=== PATIENT | female | born 2000 | race Caucasian/White ===

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

== ENCOUNTER 2021-05-21 16:30 | Day surgery (SDC) | payer MEDICAID, SELFPAY ==
[2021-05-21] VITALS (7 sets, daily range): BP systolic 92–114; BP diastolic 42–66; PULSE 82–108; RESP 16–84; TEMP 36.2–37.1; O2SAT 82–100; BMI 25.6
--- NOTE | ~2021-05-21 | US_ITS ---
EXAMINATION: US PELVIS CLINICAL INFORMATION: Post elective termination of 13 days ago. Vaginal bleeding. COMPARISON: None TECHNIQUE: Ultrasound of the pelvis is performed using transabdominal transducer along with Doppler. Patient declined transvaginal exam. FINDINGS: The uterus is anteverted and measures 8.4 x 4.2 x 4.1 cm in dimension. The endometrial thickness measures between 0.9 and 1.1 cm and is slightly heterogeneous appearing. There is motion seen in the endometrium suggestive of active bleeding. The ovaries are normal-appearing. The right ovary measures 2.2 x 2.3 x 1.3 cm and the left ovary measures 3 x 1.3 x 2.4 cm. There is no fluid in the pelvis. US/US pelvic complete IMPRESSION: Thickened endometrium. Active bleeding was observed in the endometrium. Appearance is concerning for retained products of conception.
--- NOTE | ~2021-05-21 | US_ITS ---
Indication: Suction DC in the OR EXAMINATION: Limited ultrasound. FINDINGS: Submitted to me are 8 images. Partially imaged uterus with uterine canal measuring up to 1.4 cm characterized by mixed echogenicity. US/US OB limited IMPRESSION: Ultrasound provided in the operating room. Limited limited imaging
--- NOTE | 2021-05-21 16:56 | ED.FEMALEGU ---
HPI - Female Genitourinary General Chief complaint: Vaginal Bleeding Stated complaint: vaginal bleeding Time Seen by Provider: 05/21/21 16:53 History of Present Illness HPI Narrative: Patient is 21 years old . Patient had an elective termination approximately 13 days ago. Presented today with having vaginal bleeding ever since. Worse in the 1st week. Was getting better she was getting maybe 1-2 pads per day. Starting at approximately 11:00 today. Patient claims she has been having worsening bleeding. Soak 5 pads today. No fever no chills no nausea no vomiting. Patient from home. No coughing or congestion or upper respiratory symptoms. Patient from home. Related Data Previous Rx's Medication Instructions Recorded cefdinir 300 mg capsule 300 mg PO BID #14 cap 05/06/20 Allergies Allergy/AdvReac Type Severity Reaction Status Date / Time Penicillins AdvReac Unknown Verified 05/06/20 14:46 Review of Systems Review of Systems: No fever no chills Positive vaginal bleeding All systems reviewed otherwise negative Yes all other systems are reviewed and are negative PMFSH Past Medical History Attestation statement: The following information was validated with the patient. Medical History No known health problems No known health problems Social History Social History Alcohol intake: unknown Patient Tobacco Use Status: Tobacco use Unknown Use of substances other than those prescribed or required for medical reasons: Unknown Advance Directives: No Advance Directives Information Provided: No Physical Exam Vital Signs: Vital Signs: Last Vital Signs Temp 98.7 F 05/21/21 16:55 Pulse 108 H 05/21/21 16:55 Resp 18 05/21/21 16:55 BP 100/61 05/21/21 16:55 Pulse Ox 98 05/21/21 16:55 Body Mass Index 25.6 Appearance: Alert. Oriented X3. No acute distress. Eyes: Pupils equal, round and reactive to light. ENT: Pharynx normal. Neck: Normal inspection. Neck supple. No lymph nodes noted. No crepitus CVS: Normal heart rate and rhythm. Pulses normal. Normal S1 and S2 Respiratory: No respiratory distress. Breath sounds normal. No Wheezing. No rales Abdomen: Soft and nontender. No rigidity. No distention. good BS x4 Skin: Skin warm and dry. Normal skin color. Normal skin turgor. Extremities: No lower extremity edema. Neurovascular intact to all extremities. No Lacerations. No Rash Neuro: Oriented X 3. No motor deficit. No sensory deficit. Moving all extermities. No slurred speech MDM - Female Genitourinary MDM Narrative Medical decision making narrative: Patient complaining of vaginal bleeding. Getting worse in the last 5 6 hours. History of having elective termination approximately 13 days ago. Patient's ultrasound showed possible retained products. Case discussed with OBGYN. Will take patient to the OR for D&C. Currently in stable condition. Patient's blood type is A positive Medical Records Attestation: I reviewed the patient's medical records. Lab Data Attestation: I reviewed the patient's lab results. Result diagrams: 05/21/21 17:12 05/21/21 17:12 Labs: Lab Results 05/21/21 05/21/21 05/21/21 Range/Units 17:12 17:12 17:12 WBC 12.4 H (4.8-10.8) X10*3/uL RBC 3.78 L (4.20-5.50) X10*6/uL Hgb 10.5 L (12.0-16.0) g/dl Hct 31.3 L (37-47) % MCV 82.8 (80-98) fL MCH 27.8 (27.0-33.0) pg MCHC 33.5 (31.0-35.0) g/dl RDW 12.9 (11.0-16.0) % Plt Count 324 (160-400) X10*3/uL MPV 9.3 L (9.4-12.3) fL Immature Gran % (Auto) 0.4 (0.0-0.4) % Neut % (Auto) 64.2 (45-73) % Lymph % (Auto) 22.4 (20-40) % [place] % (Auto) 9.8 (2-11) % Eos % (Auto) 2.8 (0-4) % Baso % (Auto) 0.4 (0-2) % Lymph # (Auto) 2.8 (1.2-4.9) X10*3/uL [place] # (Auto) 1.2 (0.1-1.2) X10*3/uL Eos # (Auto) 0.4 (0.0-0.4) X10*3/uL Baso # (Auto) 0.1 (0.0-0.2) X10*3/uL Abs Immat Gran (auto) 0.05 H (0.00-0.03) X10*3/uL Absolute Neuts (auto) 8.0 (2.0-8.3) X10*3/uL Absolute Nucleated RBC 0.000 (0.0-0.012) X10*3/uL Nucleated RBC % (auto) 0.0 (0.0-0.2) /100WBC Sodium 137 (135-145) mmol/L Potassium 4.0 (3.3-5.1) mmol/L Chloride 107 (96-108) mmol/L Carbon Dioxide 22 (22-29) mmol/L Anion Gap 12 (12-20) BUN 8 L (9-16) mg/dL Creatinine 0.61 (0.5-1.4) mg/dL Estim Creat Clear Calc 128.8 Estimated GFR > 60 Random Glucose 87 (60-115) mg/dL Calcium 8.6 (8.4-10.2) mg/dL Total Bilirubin 0.2 (0.0-1.0) mg/dL Direct Bilirubin < 0.2 (0.0-0.5) mg/dL AST 14 (5-31) U/L ALT 9 (0-31) U/L Alkaline Phosphatase 40 (39-117) U/L Total Protein 6.7 (6.5-8.0) g/dL Albumin 4.0 (3.5-5.0) g/dL Beta HCG, Quant 2032 mIU/mL Urine Color Urine Appearance Urine pH (5.0-8.0) Ur Specific [place] (1.005-1.025) Urine Protein (NEG-TRACE) MG/DL Urine Glucose (UA) (NEG) MG/DL Urine Ketones (NEG) MG/DL Urine Blood (NEG) Urine Nitrite (NEG) Ur Leukocyte Esterase (NEG) Urine RBC (0) /HPF Urine WBC (0-4) /HPF Ur Squamous Epith Cells /LPF Urine Bacteria /LPF Blood Type Antibody Screen 05/21/21 05/21/21 Range/Units 17:12 17:12 WBC (4.8-10.8) X10*3/uL RBC (4.20-5.50) X10*6/uL Hgb (12.0-16.0) g/dl Hct (37-47) % MCV (80-98) fL MCH (27.0-33.0) pg MCHC (31.0-35.0) g/dl RDW (11.0-16.0) % Plt Count (160-400) X10*3/uL MPV (9.4-12.3) fL Immature Gran % (Auto) (0.0-0.4) % Neut % (Auto) (45-73) % Lymph % (Auto) (20-40) % [place] % (Auto) (2-11) % Eos % (Auto) (0-4) % Baso % (Auto) (0-2) % Lymph # (Auto) (1.2-4.9) X10*3/uL [place] # (Auto) (0.1-1.2) X10*3/uL Eos # (Auto) (0.0-0.4) X10*3/uL Baso # (Auto) (0.0-0.2) X10*3/uL Abs Immat Gran (auto) (0.00-0.03) X10*3/uL Absolute Neuts (auto) (2.0-8.3) X10*3/uL Absolute Nucleated RBC (0.0-0.012) X10*3/uL Nucleated RBC % (auto) (0.0-0.2) /100WBC Sodium (135-145) mmol/L Potassium (3.3-5.1) mmol/L Chloride (96-108) mmol/L Carbon Dioxide (22-29) mmol/L Anion Gap (12-20) BUN (9-16) mg/dL Creatinine (0.5-1.4) mg/dL Estim Creat Clear Calc Estimated GFR Random Glucose (60-115) mg/dL Calcium (8.4-10.2) mg/dL Total Bilirubin (0.0-1.0) mg/dL Direct Bilirubin (0.0-0.5) mg/dL AST (5-31) U/L ALT (0-31) U/L Alkaline Phosphatase (39-117) U/L Total Protein (6.5-8.0) g/dL Albumin (3.5-5.0) g/dL Beta HCG, Quant mIU/mL Urine Color YELLOW Urine Appearance HAZY Urine pH 6.0 (5.0-8.0) Ur Specific [place] 1.010 (1.005-1.025) Urine Protein NEG (NEG-TRACE) MG/DL Urine Glucose (UA) NEG (NEG) MG/DL Urine Ketones NEG (NEG) MG/DL Urine Blood 3+ H (NEG) Urine Nitrite NEG (NEG) Ur Leukocyte Esterase NEG (NEG) Urine RBC TNTC H (0) /HPF Urine WBC 0-2 (0-4) /HPF Ur Squamous Epith Cells NONE /LPF Urine Bacteria NONE /LPF Blood Type A Positive Antibody Screen NEGATIVE Discharge Plan Discharge Clinical Impression: Vaginal bleeding, Incomplete Patient Disposition: Admitted As Inpatient
[2021-05-21 17:20] LABS: MANUAL DIFF FLAG NO
[2021-05-21 17:22] LABS: Basophils Absolute Auto 0.1 X10*3/uL (0.0-0.2); Basophils Percent Auto 0.4 % (0-2); Eosinophils Absolute Auto 0.4 X10*3/uL (0.0-0.4); Eosinophils Percent Auto 2.8 % (0-4); Hematocrit 31.3 % (37-47); Hemoglobin 10.5 g/dl (12.0-16.0); Imm Gran Abs Auto 0.05 X10*3/uL (0.00-0.03); Imm Gran Pct Auto 0.4 % (0.0-0.4); Lymphocytes Absolute Auto 2.8 X10*3/uL (1.2-4.9); Lymphocytes Percent Auto 22.4 % (20-40); Mean Corpuscular HGB Conc 33.5 g/dl (31.0-35.0); Mean Corpuscular Hemoglobin 27.8 pg (27.0-33.0); Mean Corpuscular Volume 82.8 fL (80-98); Mean Platelet Volume 9.3 fL (9.4-12.3); Monocytes Absolute Auto 1.2 X10*3/uL (0.1-1.2); Monocytes Percent Auto 9.8 % (2-11); Neutrophils Percent Auto 64.2 % (45-73); Platelet Count 324 X10*3/uL (160-400); Red Blood Count 3.78 X10*6/uL (4.20-5.50); Red Cell Distribution Width 12.9 % (11.0-16.0); White Blood Count 12.4 X10*3/uL (4.8-10.8)
[2021-05-21 17:23] LABS: Appearance Urine HAZY; Color Urine YELLOW; Glucose Urine UA NEG (NEG); Leukocyte Esterase Urine NEG (NEG); Nitrite Urine NEG (NEG); UACC Culture Trigger NO; Urine Blood 3+ (NEG); Urine Ketones NEG (NEG); Urine Protein NEG (NEG-TRACE)
[2021-05-21 17:53] LABS: HCG Quantitative 2032 mIU/mL
[2021-05-21 18:07] LABS: Alanine Aminotransferase 9 U/L (0-31); Alkaline Phosphatase 40 U/L (39-117); Anion Gap 12 (12-20); Aspartate Amino Transferase 14 U/L (5-31); Bilirubin Direct < 0.2 mg/dL (0.0-0.5); Bilirubin Total 0.2 mg/dL (0.0-1.0); Blood Urea Nitrogen 8 mg/dL (9-16); Calcium 8.6 mg/dL (8.4-10.2); Carbon Dioxide 22 mmol/L (22-29); Chloride 107 mmol/L (96-108); Creatinine Clr Calc Pharmacy 128.8; Estimated Glomerular Filt Rate > 60; Glucose Random 87 mg/dL (60-115); Sodium 137 mmol/L (135-145); Total Protein 6.7 g/dL (6.5-8.0)
[2021-05-21 18:25] LABS: RBC Urine TNTC /HPF (0); WBC Urine 0-2 /HPF (0-4)
--- NOTE | 2021-05-21 19:46 | P.CONOB_ITS ---
[employer] - CN: HPI Data of Consult Consult date: 05/21/21 Primary Care Provider: Nonstaff Physician Consult Narrative Narrative: I got consulted on Saw Mccloud who is a 21 year old female presented emergency room with 2 week history of vaginal bleeding and pelvic cramping. The [facility] since then has been having pelvic cramping and bleeding today her bleeding got worse started past blood clots per vagina and saturating 2 pads per hour no other associated symptoms. To return the emergency room was 31.2. Ultrasound showed the following: Thickened endometrium. Active bleeding was observed in the endometrium appearance is concerning for? retained products of conception. HCG is 2031. 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 Review of Systems ROS Unobtainable: All systems reviewed & are unremarkable except as noted in HPI and below Cardiovascular: Denies Palpatations, Loss of consciousness or Chest pain Respiratory: Denies Cough, Wheezing or Shortness of breath Musculoskeletal: Denies Low back pain Gastrointestinal: Denies Heartburn, Constipation, Diarrhea, Nausea or Vomiting Genitourinary: Denies Pain with urination, Burning with urination or Urinary gareth quency Neurological: Denies Migranes Psychological: Denies Depression OB PMFSH Past Medical History Medical History No known health problems No known health problems Social History Social History Alcohol intake: unknown Patient Tobacco Use Status: Tobacco use Unknown Use of substances other than those prescribed or required for medical reasons: Unknown Advance Directives: No Advance Directives Information Provided: No Meds Allergies Allergy/AdvReac Type Severity Reaction Status Date / Time Penicillins AdvReac Unknown Verified 05/06/20 14:46 [employer] Physical Exam Vitals Vital signs: Temp Pulse Resp BP Pulse Ox 98.7 F 108 H 18 100/61 98 05/21/21 16:55 05/21/21 16:55 05/21/21 16:55 05/21/21 16:55 05/21/21 16:55 Body Mass Index 25.6 Narrative: The patient declined pelvic exam Constitutional General Appearance: Healthy appearing, Well-nourished and Well-developed Psychiatric Mood and Affect: active and alert, normal mood and normal affect Skin Appearance: No rashes and No lesions Lungs Respiratory Effort: No intercostal retractions Auscultation: Clear to auscultation Cardiovascular Auscultation: RRR Abdomen Auscultation/Inspection/Palpation: Normal bowel sounds, Soft, Non-distended and No tenderness Female Genitalia (Pelvic) Exam: Declined by Patient [employer] - Results Labs CBC & Chem 7: 05/21/21 17:12 05/21/21 17:12 Labs: Short CBC 05/21/21 Range/Units 17:12 WBC 12.4 H (4.8-10.8) X10*3/uL Hgb 10.5 L (12.0-16.0) g/dl Hct 31.3 L (37-47) % Plt Count 324 (160-400) X10*3/uL BMP 05/21/21 17:12 Sodium 137 Potassium 4.0 Chloride 107 Carbon Dioxide 22 BUN 8 L Creatinine 0.61 Calcium 8.6 Liver Function 05/21/21 Range/Units 17:12 Total Bilirubin 0.2 (0.0-1.0) mg/dL Direct Bilirubin < 0.2 (0.0-0.5) mg/dL AST 14 (5-31) U/L ALT 9 (0-31) U/L Alkaline Phosphatase 40 (39-117) U/L Albumin 4.0 (3.5-5.0) g/dL Urine 05/21/21 Range/Units 17:12 Urine Color YELLOW Urine Appearance HAZY Urine pH 6.0 (5.0-8.0) Ur Specific [place] 1.010 (1.005-1.025) Urine Protein NEG (NEG-TRACE) MG/DL Urine Glucose (UA) NEG (NEG) MG/DL Antibody Screen Antibody Screen NEGATIVE 05/21/21 17:12 Assessment and Plan (1) Retained products of conception after induced termination of : Status: Acute Discussed with the patient the finding on ultrasound and clinical scenario are both consistent with retained products of conception. Options of treatment discussed with the patient include the following medical termination of with misoprostol versus suction D&C all the pros and cons and risks and benefits of each approach were discussed with the patient and the patient decided to proceed with suction D&C. More detailed discussion about the procedure, risks including bleeding, infection, possible risk of uterine perforation and possible injury to bladder, bowel, ureter, blood vessel, possible need for blood transfusion with all its possible risks, possible need for laparoscopy, laparotomy, hysterectomy. Possible uterine adhesions acting negatively future fertility. All questions answered, the patient verbalized understanding and agreed with the plan. Plan suction D&C under ultrasound guid ance the doxycycline 200 mg preop p.o.
--- NOTE | 2021-05-21 20:03 | P.CONAN_ITS ---
HPI - Anesthesia Eval Consult details Narrative: Missed PMFSH Active Problems Active Problems: All Active Problems (Updated 05/21/21 @ 19:50 by Cornell Winter MD) Retained products of conception after induced termination of (Acute) Vaginal bleeding (Acute) Incomplete (Acute) Past Medical History Medical History No known health problems No known health problems Family History Family history of problems with anesthesia: No Surgical History History of Problems with Anesthesia: No Social History Social History Alcohol intake: unknown Patient Tobacco Use Status: Tobacco use Unknown Use of substances other than those prescribed or required for medical reasons: Unknown Advance Directives: No Advance Directives Information Provided: No Meds Allergies Allergy/AdvReac Type Severity Reaction Status Date / Time Penicillins AdvReac Unknown Verified 05/06/20 14:46 Exam Exam Date and Time: May 21, 20212002 Height,Weight and Vital Signs: Height 5 ft 2 in Weight 63.503 kg Last Vital Signs Temp 98.7 F 05/21/21 16:55 Pulse 108 H 05/21/21 16:55 Resp 18 05/21/21 16:55 BP 100/61 05/21/21 16:55 Pulse Ox 98 05/21/21 16:55 Pertinent Lab Results Pertinent Lab Results: Laboratory Tests 05/21/21 05/21/21 05/21/21 17:12 17:12 17:12 WBC 12.4 H RBC 3.78 L Hgb 10.5 L Hct 31.3 L MCV 82.8 MCH 27.8 MCHC 33.5 RDW 12.9 Plt Count 324 MPV 9.3 L Immature Gran % (Auto) 0.4 Neut % (Auto) 64.2 Lymph % (Auto) 22.4 Rooks % (Auto) 9.8 Eos % (Auto) 2.8 Baso % (Auto) 0.4 Lymph # (Auto) 2.8 [place] # (Auto) 1.2 Eos # (Auto) 0.4 Baso # (Auto) 0.1 Abs Immat Gran (auto) 0.05 H Absolute Neuts (auto) 8.0 Absolute Nucleated RBC 0.000 Nucleated RBC % (auto) 0.0 Sodium 137 Potassium 4.0 Chloride 107 Carbon Dioxide 22 Anion Gap 12 BUN 8 L Creatinine 0.61 Estim Creat Clear Calc 128.8 Estimated GFR > 60 Random Glucose 87 Calcium 8.6 Total Bilirubin 0.2 Direct Bilirubin < 0.2 AST 14 ALT 9 Alkaline Phosphatase 40 Total Protein 6.7 Albumin 4.0 Beta HCG, Quant 2032 Urine Color Urine Appearance Urine pH Ur Specific [place] Urine Protein Urine Glucose (UA) Urine Ketones Urine Blood Urine Nitrite Ur Leukocyte Esterase Urine RBC Urine WBC Ur Squamous Epith Cells Urine Bacteria Blood Type Antibody Screen 05/21/21 05/21/21 17:12 17:12 WBC RBC Hgb Hct MCV MCH MCHC RDW Plt Count MPV Immature Gran % (Auto) Neut % (Auto) Lymph % (Auto) [place] % (Auto) Eos % (Auto) Baso % (Auto) Lymph # (Auto) [place]s # (Auto) Eos # (Auto) Baso # (Auto) Abs Immat Gran (auto) Absolute Neuts (auto) Absolute Nucleated RBC Nucleated RBC % (auto) Sodium Potassium Chloride Carbon Dioxide Anion Gap BUN Creatinine Estim Creat Clear Calc Estimated GFR Random Glucose Calcium Total Bilirubin Direct Bilirubin AST ALT Alkaline Phosphatase Total Protein Albumin Beta HCG, Quant Urine Color YELLOW Urine Appearance HAZY Urine pH 6.0 Ur Specific [place] 1.010 Urine Protein NEG Urine Glucose (UA) NEG Urine Ketones NEG Urine Blood 3+ H Urine Nitrite NEG Ur Leukocyte Esterase NEG Urine RBC TNTC H Urine WBC 0-2 Ur Squamous Epith Cells NONE Urine Bacteria NONE Blood Type A Positive Antibody Screen NEGATIVE Airway Mallampati Class: I TM Dist: >3cm Neck ROM: Full Loose/Missing/Broken Teeth: No Heart: RRR Lungs: CTA Assessment and Plan Assessment Anesthesia Assessment: Anesthesia Plan Discussed and Chart Reviewed Final Anesthetic Review Family History of Problems with Anesthesia: No History of Problems with Anesthesia: No NPO: Yes ASA Class: I and Emergency Final Preanesthetic Review: No Changes in Pt Med Stat, Meds/Allgs Chart Reviewed, Consent Obtained/Reviewed and Anes Risks/Benef Reviewed Patient Risk: Low Procedure Risk: Low Anesthetic Plan Anesthetic Plan: GA Disposition: Standard PACU
--- NOTE | 2021-05-21 20:27 | PC.NURSE ---
PATIENT CHANGED OVER AND IVS PLACED, DR. CARPIO AT BEDSIDE FOR EVALUATION. ORDERS FROM HIM FOR MEDICATIONS BEFORE GOING TO THE OR.
--- NOTE | 2021-05-21 20:50 | MHC.SHP ---
Pre-Procedural Eval Section A Date of Service: 05/21/21 The patient is an INPATIENT: No Changes since office visit: No Cold of Flu in the past 2 weeks, No New Medical Problems, No Changes in Medication and No Patient answered all questions The History & Physical has been completed within 30 days and I have reviewed it.: Yes Section B Chief Complaint: vaginal bleeding Allergies: Allergies Allergy/AdvReac Type Severity Reaction Status Date / Time Penicillins AdvReac Unknown Verified 05/06/20 14:46 Plan Diagnosis/Plan: Unchanged I have reviewed the history and physical and performed a pertinent physical examination on my patient. No changes have occurred unless specified.
--- NOTE | 2021-05-21 20:50 | PM.OP ---
Brief Operative Note Date of Service: 05/21/21 Pre-op diagnosis: Retained products of conception Post-op diagnosis: same Procedure: Suction D&C under ultrasound guidance Surgeon: Cornell Winter MD Anesthesia: MAC Was an Hand Dry Cleaner used for this Procedure?: No Estimated blood loss (mL): 100 Pathology: other (Products of conception) Condition: stable Disposition: PACU
--- NOTE | 2021-05-21 20:51 | P.OP_ITS ---
Operative Note Operative Note Date of Service: 05/21/21 Narrative: Preop diagnosis: Retained products of conception Operation: suction D and C under ultrasound guidance Postop diagnosis: The same EBL: Minimal Anesthesia: MAC Surgeon: Cornell Winter MD, FACOG [employer] Facility Examiner: None Pathology: Products of conception Procedure: The patient was put in a dorsal distal mid position was scrubbed and draped in the usual sterile fashion. A sterile speculum was inserted inside the patient's vagina the anterior lip of the cervix was grasped with single-tooth tenaculum the cervix was dilated up to 7 mm. Under ultrasonographic guidance flexible 7. Suction tip was introduced inside the patient ran cavity till the fundus was hit then turning the suction 360 degrees around products of conception was sucked out toward the uterine cavity. The suction tip was taken out of the patient uterine cavity sharp curettings was followed in 4 quadrants of the uterus till a gritty feeling was felt. The suction tip was reintroduced under ultrasonographic guidance and intrauterine blood was sucked. The suction tip was taken out. Single-tooth tenaculum was removed hemostasis assured using pressure. The patient tolerated the procedure well and was transferred to the PACU in a stable condition.
== END 2021-05-21 22:08 | disposition home or self-care (01) ==
LOC: HO.ED 19:45 → HO.SSS 20:35
PROVIDERS: Emergency Provider Emergency Medicine Emergency Medical Services; Visit Provider Obstetrics & Gynecology
PROC: (CPT 58120; principal; 2021-05-21 08:00)
DX: O07.1 Delayed or excessive hemorrhage following failed attempted termination of pregnancy (principal); Z88.0 Allergy status to penicillin
CPT/HCPCS: 59812; 36415; 76815; 76856; 76857; 80048; 80076; 81001; 84702; 85025; 86850; 86900; 86901; 88305; 99285; J1100; J1885; J2250; J2405; J3010

== ENCOUNTER 2021-05-28 09:01 | Outpatient (REF) | payer MEDICAID, SELFPAY ==
[2021-05-28 09:46] LABS: Hematocrit 33.9 % (37-47); Hemoglobin 10.9 g/dl (12.0-16.0); Mean Corpuscular HGB Conc 32.2 g/dl (31.0-35.0); Mean Corpuscular Hemoglobin 27.4 pg (27.0-33.0); Mean Corpuscular Volume 85.2 fL (80-98); Mean Platelet Volume 9.4 fL (9.4-12.3); Platelet Count 431 X10*3/uL (160-400); Red Blood Count 3.98 X10*6/uL (4.20-5.50); Red Cell Distribution Width 13.2 % (11.0-16.0); White Blood Count 7.4 X10*3/uL (4.8-10.8)
[2021-05-28 10:24] LABS: HCG Quantitative 114 mIU/mL
[2021-05-28 16:19] LABS: CT PCR NOT DETECTED (Not Detect.); NG PCR NOT DETECTED (Not Detect.)
== END 2021-05-28 09:02 | disposition home or self-care (01) ==
LOC: HO.LAB 09:01
PROVIDERS: Visit Provider Obstetrics & Gynecology
DX: O07.4 Failed attempted termination of pregnancy without complication (principal); R10.2 Pelvic and perineal pain
CPT/HCPCS: 36415; 84702; 85027; 87491; 87591; 99212

== ENCOUNTER 2023-01-24 15:27 | Emergency (ER) | payer MEDICAID, SELFPAY ==
[2023-01-24 16:55] VITALS: BP 147/87; PULSE 84; RESP 16; TEMP 36.7; O2SAT 99; BMI 26.4
[2023-01-24 17:17] LABS: Appearance Urine Clear; Color Urine Yellow; Glucose Urine UA Negative (Negative); Leukocyte Esterase Urine Moderate (2+) (Negative); Nitrite Urine Negative (Negative); Specific Gravity - Urine 1.015 (1.005-1.025); UMIC TRIGGER UACC YES; Urine Blood Negative (Negative); Urine Ketones Negative (Negative); Urine Protein Negative (Neg-Trace)
[2023-01-24 17:19] LABS: UPreg QC Valid YES; Urine Pregnancy NEGATIVE (NEGATIVE)
[2023-01-24 17:29] LABS: Bacteria Urine Trace (None Seen); Hyaline Casts Urine 0-2 /LPF (0-2); RBC Urine 0-2 /HPF (0-2); WBC Urine 0-5 /HPF (0-5)
--- NOTE | 2023-01-24 18:10 | ED.FEMALEGU ---
HPI - Female Genitourinary General Chief complaint: Urogenital-Female Stated complaint: wants a urine test Time Seen by Provider: 01/24/23 18:31 History of Present Illness HPI Narrative: I did not see this patient, there is a full note on this visit from physician ophthalmic medical assistant david Related Data Previous Rx's Medication Instructions Recorded doxycycline hyclate 100 mg capsule 100 mg PO BID #14 caps 01/24/23 Allergies Allergy/AdvReac Type Severity Reaction Status Date / Time Penicillins AdvReac Unknown Verified 05/28/21 10:22 [facility] Past Medical History Medical History No known health problems No known health problems Social History Social History Alcohol intake: unknown Patient Tobacco Use Status: Tobacco use Unknown Advance Directives: No Advance Directives Information Provided: No Physical Exam Vital Signs: Vital Signs: Last Vital Signs Temp 97.3 F 01/24/23 19:04 Pulse 77 01/24/23 19:04 Resp 16 01/24/23 19:04 BP 128/65 01/24/23 19:04 Pulse Ox 100 01/24/23 19:04 O2 Del Method Room Air 01/24/23 19:04 BMI result Body Mass Index 26.4 Medications Administered Discontinued Medications Generic Name Dose Route Start Last Admin Trade Name Freq PRN Reason Stop Dose Admin Azithromycin 2,000 mg 01/24/23 18:46 01/24/23 19:03 Azithromycin 500 Mg Tablet PO 01/24/23 18:47 2,000 mg ONCE ONE Administration Medical Decision Making Lab Data Labs: Lab Results 01/24/23 01/24/23 01/24/23 Range/Units 17:07 17:07 17:07 Urine Color Yellow Urine Appearance Clear Urine pH 8.0 (5.0-9.0) Ur Specific [place] 1.015 (1.005-1.025) Urine Protein Negative (Neg-Trace) mg/dL Urine Glucose (UA) Negative (Negative) mg/dL Urine Ketones Negative (Negative) mg/dL Urine Blood Negative (Negative) Urine Nitrite Negative (Negative) Ur Leukocyte Esterase Moderate (2+) H (Negative) Urine RBC 0-2 (0-2) /HPF Urine WBC 0-5 (0-5) /HPF Ur Squamous Epith Cells 3-5 (0-2) /HPF Urine Bacteria Trace (None Seen) Hyaline Casts 0-2 (0-2) /LPF Urine Test NEGATIVE (NEGATIVE) Chlam trachomat DNA PCR NOT DETECTED (Not Detect.) N.gonorrhoeae DNA (PCR) NOT DETECTED (Not Detect.) Discharge Plan Discharge Clinical Impression: Encounter for screening examination for sexually transmitted disease Patient Disposition: Home, Self-Care Instructions: Safe Sex Practices (ED) Additional Instructions: You were given a single dose of azithromycin in the emergency department as prophylaxis for gonorrhea. I have sent a prescription for doxycycline to the pharmacy, please complete this entire course, this is prophylaxis to prevent chlamydia infection. You should have a repeat testing for sexually transmitted infections in 4-6 weeks, this may be done at [facility] or with your primary care provider. If you are using oral contraceptives at this time, you should use alternative forms of contraception while taking antibiotics. Prescriptions: New doxycycline hyclate 100 mg capsule 100 mg PO BID Qty: 14 0RF Interventions: ED Discharge Assessment Last Done: 01/24/23 19:18 Discharge Date/Time: 01/24/23 19:20
--- NOTE | 2023-01-24 18:49 | ED_ITS ---
HPI - Female Genitourinary General Chief complaint: Urogenital-Female Stated complaint: wants a urine test Time Seen by Provider: 01/24/23 18:31 Source: patient Mode of arrival: ambulatory Limitations: no limitations History of Present Illness HPI Narrative: Patient is a 22-year-old female who presents to emergency department requesting testing for sexually transmitted infections. Reports unprotected sexual inte rcourse 2 days ago expresses concern about possible STI. It is currently is not having any genitourinary symptoms. Has no additional physical complaints. Related Data Previous Rx's Medication Instructions Recorded doxycycline hyclate 100 mg capsule 100 mg PO BID #14 caps 01/24/23 Allergies Allergy/AdvReac Type Severity Reaction Status Date / Time Penicillins AdvReac Unknown Verified 05/28/21 10:22 Review of Systems Review of Systems: Yes all other systems are reviewed and are negative [facility] Past Medical History Attestation statement: The following information was validated with the patient. Source: old records reviewed Medical History No known health problems No known health problems Social History Social History Alcohol intake: unknown Patient Tobacco Use Status: Tobacco use Unknown Advance Directives: No Advance Directives Information Provided: No Physical Exam Vital Signs: Vital Signs: Last Vital Signs Temp 98.1 F 01/24/23 16:55 Pulse 84 01/24/23 16:55 Resp 16 01/24/23 16:55 BP 147/87 H 01/24/23 16:55 Pulse Ox 99 01/24/23 16:55 O2 Del Method Room Air 01/24/23 16:55 BMI result Body Mass Index 26.4 Appearance: Alert.?Oriented to person, place and time. No acute distress.?Normal affect. ENT: Pharynx normal.?? CVS: Heart sounds normal. Normal heart rate and rhythm.? Pulses normal.?? Respiratory: No respiratory distress.? Lung sounds clear to auscultation bilaterally?? Abdomen: Soft and non-tender. Normoactive bowel sounds. ?? Skin: Skin warm and dry.? Normal skin color.? Neuro: Moves all extremities spontaneously. Sensation intact bilaterally. Ambulates with normal steady gait. Medical Decision Making Medical Decision Making MDM Narrative: Patient is a 22-year-old female presents emergency department requesting testing for sexually transmitted infections after unprotected intercourse. I explained to patient the testing obtained today with not reliably indicate potential of transmitted sexually transmitted infection from this episode of in intercourse given personally been 2 days. Testing was however obtained and sent to the lab, advised that she will be contacted with any positive testing results which would likely be from a prior sexual encounter. Urine test is negative. Urinalysis reveals moderate leukocyte esterase with trace bacteria no WBC, she has no genitourinary symptoms, do not suspect urinary tract infection at this time. She is currently asymptomatic, not consistent with PID. We discussed prophylactic treatment; she was given Azithromycin 2 g single dose administered while in the emergency department for prophylaxis to gonorrhea given penicillin allergy of unknown severity, prescription for doxycycline was sent to the pharmacy. Advised outpatient follow-up with PCP/tapestry for additionally STI testing are she initially upper triage she, and repeat testing in 4-6 weeks. Patient verbalized understanding. Stable for discharge. Differential Diagnosis Differential Diagnoses: The differential diagnosis associated with the presentation includes (Sexually transmitted infection, pelvic inflammatory disease, urinary tract infection, urine ) Lab Data [facility] Lab Attestation statement: I reviewed the patient's lab results. I have reviewed the patient's laboratory findings, as noted above in [facility] Labs: Lab Results 01/24/23 01/24/23 Range/Units 17:07 17:07 Urine Color Yellow Urine Appearance Clear Urine pH 8.0 (5.0-9.0) Ur Specific [place] 1.015 (1.005-1.025) Urine Protein Negative (Neg-Trace) mg/dL Urine Glucose (UA) Negative (Negative) mg/dL Urine Ketones Negative (Negative) mg/dL Urine Blood Negative (Negative) Urine Nitrite Negative (Negative) Ur Leukocyte Esterase Moderate (2+) H (Negative) Urine RBC 0-2 (0-2) /HPF Urine WBC 0-5 (0-5) /HPF Ur Squamous Epith Cells 3-5 (0-2) /HPF Urine Bacteria Trace (None Seen) Hyaline Casts 0-2 (0-2) /LPF Urine Test NEGATIVE (NEGATIVE) Prescription Management I considered prescription management with: Antibiotic (As noted in [facility]) Discharge Plan Discharge Clinical Impression: Encounter for screening examination for sexually transmitted disease Patient Disposition: Home, Self-Care Instructions: Safe Sex Practices (ED) Additional Instructions: You were given a single dose of azithromycin in the emergency department as prophylaxis for gonorrhea. I have sent a prescription for doxycycline to the pharmacy, please complete this entire course, this is prophylaxis to prevent chlamydia infection. You should have a repeat testing for sexually transmitted infections in 4-6 weeks, this may be done at [facility] or with your primary care provider. If you are using oral contraceptives at this time, you should use alternative forms of contraception while taking antibiotics. Prescriptions: New doxycycline hyclate 100 mg capsule 100 mg PO BID Qty: 14 0RF
[2023-01-24] MEDS: Azithromycin 500 MG TABLET 2000 MG PO (19:03)
[2023-01-24 19:04] VITALS: BP 128/65; PULSE 77; RESP 16; TEMP 36.3; O2SAT 100
--- NOTE | 2023-01-24 19:12 | PC.NURSE ---
per pa order given po ABX. calm, coop. aox4. no c/o pain per pt report. VS stable. eating crackers and juice well.
[2023-01-25 01:00] LABS: CT PCR NOT DETECTED (Not Detect.); NG PCR NOT DETECTED (Not Detect.)
== END 2023-01-24 19:20 | disposition home or self-care (01) ==
PROVIDERS: Nurse Practitioner Family; Emergency Provider Internal Medicine
DX: Z20.2 Contact with and (suspected) exposure to infections with a predominantly sexual mode of transmission (principal); Z79.899 Other long term (current) drug therapy
CPT/HCPCS: 0353U; 81001; 81025; 99283

== ENCOUNTER 2023-03-29 01:43 | Emergency (ER) | payer MEDICAID, SELFPAY ==
[2023-03-29 02:04] VITALS: BP 105/80; PULSE 85; RESP 16; TEMP 37.3; O2SAT 98; BMI 26.4
[2023-03-29 02:36] LABS: Hematocrit 36.2 % (37.0-47.0); Mean Corpuscular HGB Conc 33.1 g/dl (31.0-35.0); Mean Corpuscular Hemoglobin 27.9 pg (27.0-33.0); Mean Corpuscular Volume 84.2 fL (80.0-98.0); Mean Platelet Volume 9.1 fL (9.4-12.3); Platelet Count 307 X10*3/uL (160-400); Red Cell Distribution Width 12.2 % (11.0-16.0); White Blood Count 7.2 X10*3/uL (4.8-10.8)
[2023-03-29 02:41] LABS: Appearance Urine Cloudy; Color Urine Yellow; Glucose Urine UA Negative (Negative); Leukocyte Esterase Urine Trace (Negative); Nitrite Urine Negative (Negative); UMIC TRIGGER UACC YES; Urine Blood Negative (Negative); Urine Ketones Negative (Negative); Urine Protein Negative (Neg-Trace)
--- NOTE | 2023-03-29 02:44 | MHC.EDTECH ---
PATIENT BLOOD DRAWN AND URINE SAMPLE COLLECTED AND SENT TO LAB .
[2023-03-29 02:46] LABS: Bacteria Urine 1+ (None Seen); Hyaline Casts Urine 0-2 /LPF (0-2); WBC Urine 0-5 /HPF (0-5)
[2023-03-29 02:51] LABS: Alanine Aminotransferase 13 U/L (0-31); Albumin Level 3.8 g/dL (3.5-5.0); Alkaline Phosphatase 31 U/L (39-117); Anion Gap 9 (12-20); Aspartate Amino Transferase 18 U/L (5-31); Bilirubin Total 0.2 mg/dL (0.0-1.0); Blood Urea Nitrogen 13 mg/dL (9-16); Calcium 9.1 mg/dL (8.4-10.2); Carbon Dioxide 24 mmol/L (22-29); Chloride 109 mmol/L (96-108); Creatinine Clr Calc Pharmacy 110.8; Estimated Glomerular Filt Rate > 60; Glucose Random 93 mg/dL (60-115); Lipase 14 U/L (8-78); Potassium 3.8 mmol/L (3.3-5.1); Sodium 138 mmol/L (135-145)
--- NOTE | 2023-03-29 05:44 | ED.ABDPAIN ---
HPI - Abdominal Pain General Chief Complaint: Abdominal Pain Stated Complaint: food poisoning Time Seen by Provider: 03/29/23 05:40 Source: patient Mode of arrival: ambulatory Limitations: no limitations History of Present Illness HPI narrative: Patient comes to the emergency room complaining of 1 episode of vomiting. Patient denies fever chills, no diarrhea, no URI or UTI symptoms. Related Data Previous Rx's Medication Instructions Recorded doxycycline hyclate 100 mg capsule 100 mg PO BID #14 caps 01/24/23 ondansetron HCl 4 mg tablet 4 mg PO Q6H PRN nausea and 03/29/23 vomiting #10 tabs Allergies Allergy/AdvReac Type Severity Reaction Status Date / Time Penicillins AdvReac Unknown Verified 05/28/21 10:22 Review of Systems Review of Systems Constitutional : No Weight loss, No Fever, No Chills, No Night Sweats, No Fatigue, No Malaise ENT/Mouth : No Hearing loss, No Ear Pain, No Nasal Congestion, No Sinus Pain, No Hoarseness, No sore throat, No Rhinorrhea, No Swallowing Difficulty Eyes: No Eye Pain, No Swelling, No Redness, No Foreign Body, No Discharge, No Vision Changes Cardiovascular : No Chest Pain, No SOB, No Dyspnea on Exertion, No Orthopnea, No Edema, No Palpitations Respiratory : No Cough, No Sputum, No Wheezing, No Smoke Exposure, No Dyspnea Gastrointestinal : Complaining of nausea and 1 episode of vomiting, No Diarrhea, No Constipation, No abdominal Pain, No Hematochezia, No Melena Genitourinary : no irregular bleeding, No Dysuria, No Urinary Frequency, No Hematuria, No Urinary Incontinence, No Urgency, No Flank Pain, No Urinary Flow Changes, No Hesitancy Musculoskeletal : No joint pain, No Myalgias, No Joint Swelling Skin : No Skin Lesions, No rash Neuro : No Weakness, No Numbness, No Paresthesias, No Loss of Consciousness, No Dizziness, No Headache Psych : No Anxiety/Panic, No Depression, No SI/HI/AH/VH, No Social Issues, Heme/Lymph: No Bruising, No Bleeding,No Lymphadenopathy Endocrine : No Polyuria, No Polydipsia, No Temperature Intolerance PMFSH Past Medical History Medical History No known health problems No known health problems Social History Social History Alcohol intake: unknown Patient Tobacco Use Status: Tobacco use Unknown Advance Directives: No Advance Directives Information Provided: Yes Physical Exam ED Vital Signs: Vital Signs - 24 hr 03/29/23 02:04 Temperature 99.1 F Pulse Rate 85 Respiratory Rate 16 Blood Pressure 105/80 Pulse Oximetry 98 Oxygen Delivery Method Room Air BMI result Body Mass Index 26.4 Const Other: Appearance: Alert. Oriented X3. No acute distress. Eyes: Pupils equal, round and reactive to light. ENT: Pharynx normal. Neck: Normal inspection. Neck supple. No lymph nodes noted. No crepitus CVS: Normal heart rate and rhythm. Pulses normal. Normal S1 and S2 Respiratory: No respiratory distress. Breath sounds normal. No Wheezing. No rales Abdomen: Soft and nontender. No rigidity. No distention. Skin: Skin warm and dry. Normal skin color. Normal skin turgor. Extremities: No lower extremity edema. No Lacerations. No Rash Neuro: Oriented X 3. No motor deficit. No sensory deficit. Moving all extremities. No slurred speech. CN 2 through 12 grossly intact Psych: calm, cooperative, normal affect Medical Decision Making Medical Decision Making MDM Narrative: -my interpretation of labs: Unremarkable chemistry and hematology, lipase normal, electrolytes normal -physical exam is normal -patient was given 1 dose of p.o. Zofran -I considered ordering a CT scan. However, patient's labs and physical exam are normal and patient is well-appearing -discussed with the patient that episode of vomiting was likely secondary to indigestion versus food poisoning Differential Diagnosis Differential Diagnoses: The differential diagnosis associated with the presentation includes (Gastritis, viral illness, food poisoning) Lab Data 03/29/23 02:30 03/29/23 02:30 Labs: Lab Results 03/29/23 03/29/23 03/29/23 Range/Units 02:30 02:30 02:30 WBC 7.2 (4.8-10.8) X10*3/uL RBC 4.30 (4.20-5.50) X10*6/uL Hgb 12.0 (12.0-16.0) g/dl Hct 36.2 L (37.0-47.0) % MCV 84.2 (80.0-98.0) fL MCH 27.9 (27.0-33.0) pg MCHC 33.1 (31.0-35.0) g/dl RDW 12.2 (11.0-16.0) % Plt Count 307 (160-400) X10*3/uL MPV 9.1 L (9.4-12.3) fL Absolute Nucleated RBC 0.000 (0.0-0.012) X10*3/uL Nucleated RBC % (auto) 0.0 (0.0-0.2) /100WBC Sodium 138 (135-145) mmol/L Potassium 3.8 (3.3-5.1) mmol/L Chloride 109 H (96-108) mmol/L Carbon Dioxide 24 (22-29) mmol/L Anion Gap 9 L (12-20) BUN 13 (9-16) mg/dL Creatinine 0.68 (0.5-1.4) mg/dL Estim Creat Clear Calc 110.8 Estimated GFR > 60 Random Glucose 93 (60-115) mg/dL Calcium 9.1 (8.4-10.2) mg/dL Total Bilirubin 0.2 (0.0-1.0) mg/dL AST 18 (5-31) U/L ALT 13 (0-31) U/L Alkaline Phosphatase 31 L (39-117) U/L Total Protein 7.0 (6.5-8.0) g/dL Albumin 3.8 (3.5-5.0) g/dL Lipase 14 (8-78) U/L Urine Color Yellow Urine Appearance Cloudy Urine pH 7.0 (5.0-9.0) Ur Specific [place] 1.020 (1.005-1.025) Urine Protein Negative (Neg-Trace) mg/dL Urine Glucose (UA) Negative (Negative) mg/dL Urine Ketones Negative (Negative) mg/dL Urine Blood Negative (Negative) Urine Nitrite Negative (Negative) Ur Leukocyte Esterase Trace H (Negative) Urine RBC 3-5 H (0-2) /HPF Urine WBC 0-5 (0-5) /HPF Ur Squamous Epith Cells 11-20 (0-2) /HPF Urine Bacteria 1+ (None Seen) Hyaline Casts 0-2 (0-2) /LPF Discharge Plan Discharge Clinical Impression: Nausea & vomiting Patient Disposition: Home, Self-Care Instructions: Acute Nausea and Vomiting (ED) Additional Instructions: Please follow-up with your primary care physician tomorrow. If you have any worsening or new symptoms, please return to the emergency room or call 911 Prescriptions: New ondansetron HCl 4 mg tablet 4 mg PO Q6H PRN (Reason: nausea and vomiting) Qty: 10 0RF No Action doxycycline hyclate 100 mg capsule 100 mg PO BID Qty: 14 0RF
[2023-03-29 05:58] LABS: UPreg QC Valid YES; Urine Pregnancy NEGATIVE (NEGATIVE)
[2023-03-29 06:09] VITALS: RESP 20
--- NOTE | 2023-03-29 06:10 | PC.NURSE ---
Pt a&o, no sob or chest pain, reviewed discharge instruction, pt verbalized understanding.
== END 2023-03-29 06:12 | disposition home or self-care (01) ==
PROVIDERS: Emergency Provider Emergency Medicine
DX: A05.9 Bacterial foodborne intoxication, unspecified (principal); R11.2 Nausea with vomiting, unspecified; Z79.899 Other long term (current) drug therapy
CPT/HCPCS: 36415; 80053; 81001; 81025; 83690; 85027; 99283; 99284

== ENCOUNTER 2023-07-07 15:14 | Emergency (ER) | payer OTHER, MEDICAID, SELFPAY ==
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
[2023-07-07 17:20] VITALS: BP 122/85; PULSE 92; RESP 18; TEMP 37.4; O2SAT 100; BMI 27.2
[2023-07-07 19:48] VITALS: BP 111/69; PULSE 80; RESP 18; O2SAT 99
[2023-07-07 20:02] LABS: UPreg QC Valid YES; Urine Pregnancy NEGATIVE (NEGATIVE)
== END 2023-07-07 20:22 | disposition home or self-care (01) ==
PROVIDERS: Physician Assistant Medical; Emergency Provider Emergency Medicine
DX: Z04.1 Encounter for examination and observation following transport accident (principal); M54.50 Low back pain, unspecified
CPT/HCPCS: 72100; 72220; 81025; 99283